=== PATIENT | male | born 1935 | race Caucasian/White ===

== ENCOUNTER 2022-10-15 08:37 | Outpatient (CLI) | payer MEDICARE ==
[~2022-10-15 08:37] MED LIST: AMLO5TAB PO; ASCO500C18 PO; CLOP75TA34 PO; DOXA4TAB3 PO; FINA5TAB11 PO; FURO40TA4 PO; LOSA100T4 PO; LOVA40TA76 PO; NITR0.4T51 SL; POTA-206 PO; TRAM50TA2 PO; VIT1CAPS46 PO; WARF-113 PO
[2022-10-15] MEDS ORDERED: GADOTERATE MEGLUMINE 7.5 MMOL/15 ML VIAL IV ONE (12:48)
== END 2022-10-15 23:59 | disposition home or self-care (01) ==
LOC: RAD 08:37
PROVIDERS: ATTEND Internal Medicine Interventional Cardiology
DX: I65.23 Occlusion and stenosis of bilateral carotid arteries (principal); I67.82 Cerebral ischemia; R90.82 White matter disease, unspecified; J34.89 Other specified disorders of nose and nasal sinuses
CPT/HCPCS: 70544; 70547; 70551; A9575

== ENCOUNTER 2023-08-31 12:50 | Inpatient (IN) | payer MEDICARE ==
[~2023-08-31] VITALS: Ht 182.9 cm; Wt 96.0 kg
[~2023-08-31 12:50] MED LIST changes: -AMLO5TAB PO; -ASCO500C18 PO; -CLOP75TA34 PO; -DOXA4TAB3 PO; +LOSA-418 PO; -LOSA100T4 PO; -POTA-206 PO; +POTA-366 PO; -TRAM50TA2 PO
[2023-08-31 14:36] LABS: BASOPHILS % (AUTO) 0.6 % (0-1); EOSINOPHILS % (AUTO) 0.1 % (0-6); HEMATOCRIT 41.7 % (42.0-52.0); HEMOGLOBIN 14.2 g/dl (14.0-17.9); LYMPHOCYTES # (AUTO) 0.2 X10'3 (1.1-4.8); LYMPHOCYTES % (AUTO) 3.3 % (21-51); MEAN CORPUSCULAR HEMOGLOBIN 32.1 PG (27.0-31.0); MEAN CORPUSCULAR VOLUME 94.3 FL (78-98); MEAN PLATELET VOLUME 8.4 FL (7.4-10.4); MONOCYTES # (AUTO) 0.7 X10'3 (0-0.9); MONOCYTES % (AUTO) 9.5 % (2-12); NEUTROPHILS # (AUTO) 6.3 X10'3 (1.8-7.7); NEUTROPHILS % (AUTO) 86.5 % (42-75); PLATELET COUNT 185 X10'3 (140-440); RED BLOOD COUNT 4.43 X10'6 (4.70-6.10); RED CELL DISTRIBUTION WIDTH 13.7 % (11.5-14.5); WHITE BLOOD COUNT 7.3 X10'3 (4.5-11.0)
[2023-08-31] MEDS: CefTRIAXone 2gm/D5W 50ml BAG 50 ML IV ONE (15:00)
[2023-08-31 15:09] LABS: ALBUMIN 3.7 G/DL (3.4-5.0); ANION GAP 9 (8-16); BLOOD UREA NITROGEN 27 MG/DL (7-18); CALCIUM 9.1 MG/DL (8.5-10.1); CHLORIDE 102 MMOL/L (99-107); CREATININE 1.93 MG/DL (0.60-1.10); GLUCOSE 111 MG/DL (70-104); MAGNESIUM 2.5 MG/DL (1.5-2.4); POTASSIUM 4.9 MMOL/L (3.5-5.1); SODIUM 139 MMOL/L (135-145); TOTAL CARBON DIOXIDE 28.3 MMOL/L (24-32); eCRCL 30 ML/MIN; eGFR 33 ML/MIN
[2023-08-31] MEDS ORDERED: magnesium 4gm in 100ml NS 100 ML IV PRN (17:00)
[2023-08-31] MEDS ORDERED: magnesium 2GM in 50ml NS 50 ML IV PRN (17:00)
[2023-08-31] MEDS ORDERED: ondansetron/PF 4mg/2ml inj IV PRN (17:00)
[2023-08-31] MEDS ORDERED: potassium Cl 40MEQ/1/2NS 520ml 520 ML IV PRN (17:00)
[2023-08-31] MEDS ORDERED: acetaminophen 325mg tablet PO PRN ×2 (17:00)
[2023-08-31] MEDS ORDERED: potassium Cl 20 mEq SR tablet PO PRN ×2 (17:00)
[2023-08-31] MEDS ORDERED: magnesium Cl slow-release 64mg tablet PO PRN (17:00)
[2023-08-31] MEDS: normal saline 1000ml 1,000 ML IV SCH (19:04)
[2023-08-31 19:42] LABS: BILIRUBIN,URINE NEGATIVE (Neg); CLARITY,URINE CLEAR (Clear); COLOR,URINE YELLOW (Yellow); GLUCOSE, URINE NEGATIVE (Neg); KETONES,URINE NEGATIVE (Neg); LEUKOCYTE ESTERASE ,URINE NEGATIVE (Neg); NITRITES, URINE NEGATIVE (Neg); OCCULT BLOOD,URINE MODERATE (Neg); PROTEIN,URINE TRACE mg/dl (Neg); UROBILINOGEN,URINE 0.2 E.U/dL (0.2-1.0)
[2023-08-31 20:06] LABS: UA COLLECTION TYPE URINAL
[2023-08-31 20:08] LABS: BACTERIA,URINE NONE SEEN /HPF (Neg); SQUAMOUS EPITHELIAL CELL,UR FEW /LPF (FEW); TRANSITIONAL EPI CELLS,URINE FEW /HPF; WBC,URINE 0-4 /HPF (0-4)
[2023-08-31] MEDS: heparin, porcine 5000 units/ml vial SQ SCH (21:14)
[2023-08-31 22:00] VITALS: BP 127/61; PULSE 69; RESP 16; TEMP 98; O2SAT 95
[2023-08-31] MEDS: temazepam 15mg capsule PO PRN (23:26)
[2023-09-01 06:00] VITALS: BP 145/68; PULSE 73; RESP 20; TEMP 97.3; O2SAT 96
[2023-09-01] MEDS ORDERED: losartan 25mg tablet PO SCH (08:00)
[2023-09-01 08:55] LABS: BASOPHILS % (AUTO) 0.8 % (0-1); EOSINOPHILS % (AUTO) 0.6 % (0-6); HEMATOCRIT 42.3 % (42.0-52.0); HEMOGLOBIN 14.4 g/dl (14.0-17.9); LYMPHOCYTES # (AUTO) 0.5 X10'3 (1.1-4.8); LYMPHOCYTES % (AUTO) 7.9 % (21-51); MEAN CORPUSCULAR HEMOGLOBIN 32.4 PG (27.0-31.0); MEAN CORPUSCULAR VOLUME 95.6 FL (78-98); MONOCYTES # (AUTO) 0.9 X10'3 (0-0.9); MONOCYTES % (AUTO) 13.6 % (2-12); NEUTROPHILS # (AUTO) 4.9 X10'3 (1.8-7.7); NEUTROPHILS % (AUTO) 77.1 % (42-75); PLATELET COUNT 171 X10'3 (140-440); RED BLOOD COUNT 4.43 X10'6 (4.70-6.10); RED CELL DISTRIBUTION WIDTH 13.6 % (11.5-14.5); WHITE BLOOD COUNT 6.4 X10'3 (4.5-11.0)
[2023-09-01 09:12] LABS: INR 2.1 INR; PROTHROMBIN TIME 21.9 SECONDS (9.0-12.0)
[2023-09-01 09:16] LABS: ALANINE AMINOTRANSFERASE 28 U/L (12-78); ALBUMIN 3.4 G/DL (3.4-5.0); ALBUMIN/GLOBULIN RATIO 0.9 (1.1-1.5); ALKALINE PHOSPHATASE 78 IU/L (46-116); ASPARTATE AMINO TRANSFERASE 115 U/L (10-37); BILIRUBIN,TOTAL 0.5 MG/DL (0.1-1.0); BLOOD UREA NITROGEN 24 MG/DL (7-18); BUN/CREATININE RATIO 14.8 (10.0-20.0); CALCIUM 8.7 MG/DL (8.5-10.1); CHLORIDE 101 MMOL/L (99-107); CREATININE 1.62 MG/DL (0.60-1.10); GLUCOSE 98 MG/DL (70-104); TOTAL CARBON DIOXIDE 28.3 MMOL/L (24-32); TOTAL PROTEIN 7.2 G/DL (6.4-8.2); eCRCL 35 ML/MIN; eGFR 41 ML/MIN
[2023-09-01 09:33] LABS: ANION GAP 11 (8-16); POTASSIUM 3.9 MMOL/L (3.5-5.1); SODIUM 140 MMOL/L (135-145)
[2023-09-01 10:00] VITALS: BP 107/50; PULSE 70; RESP 16; TEMP 97.3; O2SAT 98
[2023-09-01] MEDS: atorvastatin 20mg tablet PO SCH (10:50)
[2023-09-01] MEDS: potassium chloride 10mEq ER tablet PO SCH (10:53)
[2023-09-01] MEDS: losartan 50mg tablet PO SCH (10:53)
[2023-09-01 15:30] VITALS: BP 87/49; PULSE 60
[2023-09-01 15:31] VITALS: BP_SYST 117; BP_SYST 81; BP_DIAS 50; BP_DIAS 52; PULSE 60; PULSE 63
[2023-09-01 20:00] VITALS: RESP 18; O2SAT 97
[2023-09-01] MEDS: finasteride 5mg tablet PO SCH (20:05)
[2023-09-01 20:12] VITALS: BP_SYST 100; BP_SYST 91; BP_SYST 97; BP_DIAS 46; BP_DIAS 50; BP_DIAS 51; PULSE 70; PULSE 80
[2023-09-01] MEDS ORDERED: warfarin 5mg tablet PO SCH (21:00)
[2023-09-01] MEDS ORDERED: LOVASTATIN 80 MG PO SCH (21:00)
[2023-09-02 06:00] VITALS: BP 91/55; PULSE 64; RESP 20; TEMP 98.7; O2SAT 94
[2023-09-02 06:49] LABS: HEMOGLOBIN 12.3 g/dl (14.0-17.9)
[2023-09-02 06:52] LABS: BASOPHILS % (AUTO) 0.8 % (0-1); EOSINOPHILS % (AUTO) 0.8 % (0-6); LYMPHOCYTES # (AUTO) 0.6 X10'3 (1.1-4.8); LYMPHOCYTES % (AUTO) 11.3 % (21-51); MEAN CORPUSCULAR HEMOGLOBIN 32.4 PG (27.0-31.0); MEAN CORPUSCULAR HGB CONC 34.3 g/dL (33.0-36.5); MEAN CORPUSCULAR VOLUME 94.6 FL (78-98); MONOCYTES # (AUTO) 0.7 X10'3 (0-0.9); MONOCYTES % (AUTO) 13.9 % (2-12); NEUTROPHILS # (AUTO) 3.8 X10'3 (1.8-7.7); NEUTROPHILS % (AUTO) 73.2 % (42-75); PLATELET COUNT 149 X10'3 (140-440); RED BLOOD COUNT 3.81 X10'6 (4.70-6.10); RED CELL DISTRIBUTION WIDTH 13.6 % (11.5-14.5); WHITE BLOOD COUNT 5.2 X10'3 (4.5-11.0)
[2023-09-02 06:55] LABS: INR 1.7 INR; PROTHROMBIN TIME 17.4 SECONDS (9.0-12.0)
[2023-09-02 07:10] LABS: ALANINE AMINOTRANSFERASE 21 U/L (12-78); ALBUMIN 2.8 G/DL (3.4-5.0); ALBUMIN/GLOBULIN RATIO 0.8 (1.1-1.5); ALKALINE PHOSPHATASE 70 IU/L (46-116); ANION GAP 8 (8-16); ASPARTATE AMINO TRANSFERASE 85 U/L (10-37); BILIRUBIN,TOTAL 0.7 MG/DL (0.1-1.0); BLOOD UREA NITROGEN 35 MG/DL (7-18); BUN/CREATININE RATIO 22.2 (10.0-20.0); CHLORIDE 102 MMOL/L (99-107); CREATININE 1.58 MG/DL (0.60-1.10); GLUCOSE 101 MG/DL (70-104); POTASSIUM 4.2 MMOL/L (3.5-5.1); SODIUM 136 MMOL/L (135-145); TOTAL CARBON DIOXIDE 26.4 MMOL/L (24-32); TOTAL PROTEIN 6.3 G/DL (6.4-8.2); eCRCL 36 ML/MIN; eGFR 42 ML/MIN
[2023-09-02 08:00] VITALS: RESP 20; O2SAT 94
[2023-09-02 08:30] VITALS: BP 122/56
[2023-09-02] MEDS: losartan 25mg tablet PO SCH (09:14)
[2023-09-02 10:00] VITALS: BP 100/43; PULSE 70; RESP 18; TEMP 97.8; O2SAT 96
[2023-09-02] MEDS: midodrine tablet 2.5 MG TABLET PO SCH (17:59)
[2023-09-02 18:00] VITALS: BP 125/57; PULSE 65; RESP 22; TEMP 98.6; O2SAT 96
[2023-09-02] MEDS ORDERED: LOSA25TA41 PO (18:09)
[2023-09-02] MEDS ORDERED: MIDO2.5T14 PO (18:09)
[2023-09-03] MEDS ORDERED: losartan 25mg tablet PO SCH (08:00)
== END 2023-09-02 19:19 | disposition home health service (06) | DRG 640 ==
LOC: ER 12:51 → INTOOBSV 17:05 → ED HOLD 17:05 → EDBEDREQ 21:02 → ORTHO 4S 21:51 → OBSVTOIN 09-01 18:32
PROVIDERS: ADMIT Internal Medicine; ATTEND Internal Medicine
DX: E86.0 Dehydration (principal); U07.1 COVID-19; I48.20 Chronic atrial fibrillation, unspecified; I50.32 Chronic diastolic (congestive) heart failure; I95.1 Orthostatic hypotension; I25.10 Atherosclerotic heart disease of native coronary artery without angina pectoris; N18.30 Chronic kidney disease, stage 3 unspecified; J44.9 Chronic obstructive pulmonary disease, unspecified; D64.9 Anemia, unspecified; G47.30 Sleep apnea, unspecified; Z95.0 Presence of cardiac pacemaker; Z86.73 Personal history of transient ischemic attack (TIA), and cerebral infarction without residual deficits; Z95.1 Presence of aortocoronary bypass graft; Z85.46 Personal history of malignant neoplasm of prostate; I25.2 Old myocardial infarction; Z79.01 Long term (current) use of anticoagulants; R19.7 Diarrhea, unspecified
CPT/HCPCS: 36415; 70450; 70551; 71045; 74176; 80048; 80053; 81001; 83605; 83735; 84145; 85025; 85610; 87040; 87081; 87811; 93005; 93306; 96365; 97161; 97530; 99285; A4314; G0378; J0696; J1644; J7030